=== PATIENT | female | born 1985 | race Caucasian/White ===

== ENCOUNTER 2020-05-15 12:50 | Outpatient (RCR) | payer MEDICARE, MEDICAID, SELFPAY | END 2020-05-15 19:00 | disposition home or self-care (01) | LOC: PT 12:50 | PROVIDERS: PCP Internal Medicine; Referring Provider Internal Medicine; Visit Provider Internal Medicine | DX: G82.50 Quadriplegia, unspecified (principal); G40.109 Localization-related (focal) (partial) symptomatic epilepsy and epileptic syndromes with simple partial seizures, not intractable, without status epilepticus ==

== ENCOUNTER 2024-09-18 11:27 | Outpatient (RCR) | payer MEDICARE, MEDICAID, SELFPAY ==
--- NOTE | 2024-09-19 07:41 | HP.PTEVAL_ITS ---
Patient's Visit Information Visit Information Visit Information: BRISEYDA ROCHA is a 38 year old F referred to Physical Therapy by [facility] with a diagnosis of CP with quadripelgia. Date of Evaluation: 09/18/24 Physical Therapist: Manoj Zarate DPT Visit Plan Frequency: 1x/Week Duration: 1 Week Plan: Pt. to assessed for need for a WC. She has a current WC but her father was looking for replacements of her current chair to make more safe. I will send this assessment to [facility] to assist with his Briseyda's needs. Subjective Subjective: Pt. is here today for her initial evaluation with need for WC evaluation. Pt. was born with CP and resultant quadriplegia. Pt. is here today with her foster father. Pt's father does most of the talking today. He reports she spends most of her day in her chair. She does not walk and is a total assistance for her transfers. She is unable to roll in bed and is unable to complete most ADLs. Pt. is in a motorized wheel chair. Pt. has been in her current chair for ~10 years per father. He reports parts are starting to breakdown. He feels like the foot straps are not working like they should, the battery is not functional like it originally did, the cushion seems to be breaking down, everything is just well used. Patient denies pain today when questioned. Objective Objective: POSTURE: Pt. is unable to sit upright on her own. She has very little trunk control. Pt. has marked contractures in B hands and fingers. PALPATION: Pt. has no facial expressions with palpation of BLEs or UEs. NEURO: No obvious clonus in BLEs. Pt. has marked contractures throughout. ROM: Pt/ tolerated most of knee ROM, but limited into full extension. Tightness in B calves and HS. Pt. has marked loss in B shoulder both actively and passively. MMT: PT. did not have any marked volitional movement of BLEs. Pt. was able to slight raise her B UEs, R more so than L. She was able to squeeze me hands with her RUE, but limited. TRUNK control: Pt. was unable to hold her self up in sitting position, but need max A to maintain from external sources. Transfers: max A with slight tolerance to WBing through BLEs. From her evaluation, patient needs assistance for trunk control, head support, a cushion to support prolonged daily use, foot rests and straps to keep her in her chair as well as a seat belt to assist with maintaining in her chair. She would be unable to self propel her in a manual WC and requires and motorized wc chair. She would need parts replaced that are wearing out or damaged. From my assessment she would require the above features in a wc to make is safe for her. Balance/Special Test Scores Lower Extremity Functional Score: 6 Goals Goal 1:: LTG: Pt. to be assessed for need for WC. Goal Time Frame: 1 Week Rehabilitation Potential Physical Therapy Diagnosis: Pt. has CP with quadriplegia and would benefit from a motorized WC for the above reasons mentioned. Rehabilitation Potential: Excellent Anticipated Interventions Patient/Client Instruction: Educate patient on: Condition, Plan of Care, Risk Factors and Benefits of Fitness Program For the Purpose of:: To improve self management, To improve ability to perform tasks related to life management and To improve tolerance to ADL's Text: Thank you for the opportunity to evaluate your patient. For Medicare and Medicare HMO plans, please review the plan of care and approve it. It will need to be FAXED BACK to us at [phone] for Medicare purposes. For Medicare only, by signing this I certify the plan of care. Please let me know if there are questions or concerns regarding this plan of care. Physician Signature: Date:
== END 2024-09-18 19:00 | disposition home or self-care (01) ==
LOC: PT 11:27
PROVIDERS: PCP Internal Medicine
DX: G82.50 Quadriplegia, unspecified (principal)
CPT/HCPCS: 97161

== ENCOUNTER 2025-08-06 11:54 | Outpatient (RCR) | payer MEDICARE, MEDICAID, SELFPAY ==
--- NOTE | 2025-08-06 12:54 | HP.PTEVAL ---
Patient's Visit Information Visit Information Visit Information: MERT ROCHA is a 39 year old F referred to Physical Therapy by [facility] of Town [facility] with a diagnosis of Cerebral Palsy. Date of Evaluation: 08/06/25 Physical Therapist: Jeremiah Ohara, PT, ATC Visit Plan Frequency: 1x/Week Duration: 1 Week Plan: Pt was assessed today for the need of an electric WC. See eval for details. Discharge. Subjective Subjective: Pt was born with CP. Pt has been WC bound for her entire life. Pt has had the same WC for 7 years which is starting to fall apart. Pt's Hx is given by her foster father who is the care provider for her. Pt is a dependent transfer for all transfers. Pt does have a sore from her chair on her dorsal aspect on her R gluteal region. Pt is unable to aid with positioning in her wheelchair. Pt is unable to comment on her extremity and core sensation. Pt dependent on eating at this time as her caregiver aids with all aspects. Pt is 4'11" and weighs 105 pounds. Pt is contractured with both UE's and LE's. Pt is unable to ambulate at this time. Pt is able to wieghtbear through her LE's, but requires MAXAx1 to maintain balance. Objective Objective: Posture: Pt sits with decreased lumbar spine lordosis, and increased c/s lordosis MMT: Pt is grossly rated at 2/5 at this time. transfers: pt is dependent with all transfers at this time Gait: Pt is unable to functionally ambulate at this time ROM: Pt is limited with AROM in B UE's and LE's secondary to contractures from CP Goals Goal 1:: NA Rehabilitation Potential Physical Therapy Diagnosis: Pt is dependent with all transfers, Has B UE and LE contractures, and is wheelchair dependent for all mobility secondary to CP Rehabilitation Potential: Good Anticipated Interventions Patient/Client Instruction: Educate patient on: Condition and Plan of Care For the Purpose of:: To facilitate caregiver knowledge Text: Thank you for the opportunity to evaluate your patient. For Medicare and Medicare HMO plans, please review the plan of care and approve it. It will need to be FAXED BACK to us at [phone] for Medicare purposes. For Medicare only, by signing this I certify the plan of care. Please let me know if there are questions or concerns regarding this plan of care. Physician Signature: Date:
--- NOTE | 2025-08-06 12:54 | HP.PT.NRP ---
Patient Information Patient Information: MERT ROCHA was seen in my office for initial evaluation on 08/06/25. The following Plan of Care was established for this patient: POC Established Initial Frequency: 1x/Week Initial Duration: 1 Week Anticipated Interventions Patient/Client Instruction: Educate patient on: Condition and Plan of Care For the Purpose of:: To facilitate caregiver knowledge Last Seen Last Seen: This patient was last seen in our office . Pertinent comments regarding their Physical therapy will appear below: At this point I will be discontinuing this patient from physical therapy. I would be happy to see this patient again in the future if found appropriate by the physician. Thank you! Jeremiah Ohara, PT, ATC
== END 2025-08-06 19:00 | disposition home or self-care (01) ==
LOC: PT 11:54
PROVIDERS: PCP Internal Medicine
DX: G80.9 Cerebral palsy, unspecified (principal); G82.50 Quadriplegia, unspecified
CPT/HCPCS: 97161